=== PATIENT | female | born 1990 | race Hispanic/Latino ===

== ENCOUNTER 2016-07-10 15:34 | Emergency (ER) | payer OTHER ==
[~2016-07-10] VITALS: Ht 160 cm; Wt 108.9 kg
[2016-07-10 16:46] VITALS: BP 151/79
--- NOTE | 2016-07-10 16:48 | ED GI/GU/ABDOMINAL COMPLAINT ---
History of Present Illness General Chief Complaint: General Adult Stated Complaint: OPEN INCISION, S/P 07/05 Source: patient Exam Limitations: no limitations Vital Signs & Intake/Output Vital Signs & Intake/Output Vital Signs Date Time Temp Pulse Resp B/P B/P Pulse O2 O2 Flow FiO2 Mean Ox Delivery Rate 07/10 1646 97.9 86 20 151/79 99 Room Air Allergies Coded Allergies: No Known Allergies (07/10/16) Triage Note: PT TO ED FOR TWO STITCHES THAT OPENED YESTERDAY S/P DELIVERY ON MONDAY. NO COMPLICATIONS WITH SURGERY. PT REPORTS PAIN AND "PINK" AROUND THE INCISION SITE. DENIES FEVER OR CHILLS. Triage Nurses Notes Reviewed? yes ? n Is pt currently ? Yes Onset: Abrupt Duration: day(s):, constant Timing: recent history No Modifying Factors: none HPI: 25-year-old female comes into emergency room for further evaluation of her incision site after her . Patient reports that she had a done this past Monday 6 days ago. Patient reports that the sutures removed 2 days ago. She reports that she noticed when she coughs that there appeared to be a little pink area and she was concerned that the incision site opened up. Denies any fever chills redness. Some associated lower abdominal pain since the . Denies any other associated symptoms. (BETTE BLUM) Past History Travel History Traveled to [place] past 21 day No Medical History Any Pertinent Medical History? 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 No (BETTE BLUM) Review of Systems Review of Systems Constitutional: Reports: no symptoms. EENTM: Reports: no symptoms. Respiratory: Reports: no symptoms. Cardiovascular: Reports: no symptoms. GI: Reports: no symptoms. Genitourinary: Reports: no symptoms. Musculoskeletal: Reports: no symptoms. Skin: Reports: see HPI. Neurological/Psychological: Reports: no symptoms. Hematologic/Endocrine: Reports: no symptoms. Immunologic/Allergic: Reports: no symptoms. All Other Systems: Reviewed and Negative (BETTE BLUM) Physical Exam Physical Exam General Appearance: well developed/nourished, no apparent distress, alert Head: atraumatic, normal appearance Eyes: Bilateral: normal appearance. Ears, Nose, Throat, Mouth: hearing grossly normal, moist mucous membrane Neck: normal inspection, full range of motion Respiratory: normal breath sounds, no respiratory distress Cardiovascular: regular rate/rhythm Gastrointestinal: soft, tenderness, mild lower abdomen, incision site healing well, no dehiscence, no discharge, no erythema, no warmth, small pink area of skin showing on the right side, Back: normal inspection Extremities: normal range of motion Neurologic/Psych: awake, alert, oriented x 3, normal gait, normal mood/affect Skin: intact, normal color Core Measures ACS in differential dx? No Severe Sepsis Present: No Septic Shock Present: No (BETTE BLUM) Progress Differential Diagnosis: appendicitis, cellulitis, abscess, seroma, candidiasis, Plan of Care: 07/10/2016 7:14:19 PM Patient sees a [facility] doctor out of [place]. Her wound appears to be healing well. She clinically looks well. She is nontoxic-appearing. She is in no apparent distress. No acute abdomen on exam. At this time I do not feel any further workup is necessary. Patient can follow-up with her [facility] doctor tomorrow. Case discussed with Dr. Betancur. Initial ED EKG: none (BETTE BLUM) Departure Departure Disposition: HOME OR SELF CARE Condition: Stable Clinical Impression Primary Impression: Visit for wound check Referrals: UNKNOWN (PCP/Family) Additional Instructions: Follow-up with your [employer] doctor tomorrow. Return if any increased pain, redness, fever chills, or any other concerns worsening symptoms. Tylenol as needed for pain. Departure Forms: Customer Survey General Discharge Information (BETTE BLUM) PA/CUFF TURNER Co-Sign Statement Statement: ED Attending supervision documentation- [] I saw and evaluated the patient. I have also reviewed all the pertinent lab results and diagnostic results. I agree with the findings and the plan of care as documented in the PA's/CUFF TURNER's documentation. [X] I have reviewed the ED Record and agree with the PA's/CUFF TURNER's documentation. [] Additions or exceptions (if any) to the PAs/CUFF TURNER's note and plan are summarized below: [] (PABLO VALDEZ,JIM Ruiz)
== END 2016-07-10 16:58 ==
LOC: ERH 15:34
DX: Z48.01 Encounter for change or removal of surgical wound dressing (principal)
CPT/HCPCS: 99281